=== PATIENT | female | born 1945 | race Two or more races ===

== ENCOUNTER 2020-08-25 23:35 | Inpatient (IN) | payer MEDICARE, MEDICAID ==
[~2020-08-25] VITALS: Ht 160 cm; Wt 74.8 kg
[2020-08-25] MEDS ORDERED: ONDANSETRON HCL 4MG/2ML INJ IV STA (23:47)
[2020-08-26] VITALS (11 sets, daily range): BP systolic 96–122; BP diastolic 44–53
[2020-08-26] MEDS ORDERED: SODIUM CHLORIDE 0.9% 1,000 ML IV ONE
[2020-08-26 00:32] LABS: HEMATOCRIT. 43.7 % (36.0-48.0); HEMOGLOBIN. 13.7 g/dL (12.0-16.0); MEAN CORPUSCULAR VOLUME 95.2 fL (81.0-99.0); MEAN PLATELET VOLUME 13.1 fl (7.4-10.4); PLATELET 200 x1000/uL (130-400); RED BLOOD CELL COUNT 4.59 mill/uL (4.2-5.4); RED CELL DISTRIBUTION WIDTH 14.9 % (11.6-14.6)
[2020-08-26 00:37] LABS: CHLORIDE 95 mEq/L (98-107)
[2020-08-26 00:41] LABS: BG BASE EXCESS -11.5 mmol/L (-2.0-2.0); BG CARBOXYHEMOGLOBIN 0.4 % (0.5-1.5); BG FRACTION INSPIRED OXYGEN 44; BG HCO3 ACT 13.8 mmol/L (22.0-26.0); BG METHEMOGLOBIN 0.2 % (0.0-1.5); BG OXYGEN SATURATION 79.9 % (92.0-98.5); BG OXYHEMOGLOBIN 79.4 % (94.0-97.0); BG PO2 49.7 mmHg (75.0-100.0); BG SAMPLE SITE LEFT RADIAL; BG TOTAL HEMOGLOBIN 13.9 g/dL (12.0-18.0); BG VENT MODE NASAL CANNULA
[2020-08-26 00:49] LABS: D-DIMER 4.91 mg/L FEU (<0.50); INR 1.1; PROTHROMBIN TIME 11.9 sec (9.6-11.0)
[2020-08-26] MEDS ORDERED: INSULIN REGULAR (HUMULIN R) 300UNITS/3ML VIAL SUBCUT SCH (01:15)
[2020-08-26] MEDS ORDERED: AZITHROMYCIN 500 MG in DEXT 5% WATER 250 ML IV ONE (01:30)
[2020-08-26] MEDS ORDERED: CEFTRIAXONE 1 G PREMIX 50 ML IV ONE (01:30)
[2020-08-26] MEDS ORDERED: VECURONIUM BROMIDE 10 MG/VIAL IV ONE (02:30)
[2020-08-26] MEDS ORDERED: ETOMIDATE 2MG/ML 10ML VIAL IV ONE (02:30)
[2020-08-26] MEDS ORDERED: PROPOFOL 10MG/ML 100ML 100 ML IV ONE (02:30)
[2020-08-26 03:12] LABS: PLATELET ESTIMATE NORMAL
[2020-08-26] MEDS ORDERED: DILTIAZEM HCL 125 MG in DEXTROSE 5% WATER 125 ML IV PRN (07:00)
[2020-08-26] MEDS ORDERED: PROPOFOL 10MG/ML 100ML 100 ML IV PRN (08:15)
[2020-08-26 08:52] LABS: BG CARBOXYHEMOGLOBIN 0.3 % (0.5-1.5); BG DEOXYHEMOGLOBIN 4.7 % (0.0-5.0); BG FRACTION INSPIRED OXYGEN 100; BG HCO3 ACT 19.5 mmol/L (22.0-26.0); BG METHEMOGLOBIN 0.1 % (0.0-1.5); BG OXYGEN SATURATION 95.3 % (92.0-98.5); BG OXYHEMOGLOBIN 94.9 % (94.0-97.0); BG PCO2 34.8 mmHg (35.0-45.0); BG PH 7.367 (7.350-7.450); BG PO2 80.5 mmHg (75.0-100.0); BG SAMPLE SITE LEFT BRACHIAL; BG TOTAL HEMOGLOBIN 12.6 g/dL (12.0-18.0); BG TOTAL RESPIRATORY RATE 27 b/min; BG VENT MODE VENT - AC
[2020-08-26] MEDS ORDERED: ENOXAPARIN 80MG/0.8ML SYR SUBCUT SCH (09:00)
[2020-08-26] MEDS ORDERED: PANTOPRAZOLE SODIUM 40 MG/VIAL IV SCH (09:00)
[2020-08-26] MEDS ORDERED: SODIUM CHLORIDE 0.9% 1,000 ML IV SCH (09:30)
[2020-08-26] MEDS: DEXAMETHASONE 10 MG/ML VIAL IV SCH (09:54)
[2020-08-26 10:38] LABS: CLARITY URINE CLOUDY (CLEAR); COLOR URINE YELLOW (YELLOW); KETONES URINE TRACE (NEGATIVE); LEUKOCYTE ESTERASE URINE 2+ (NEGATIVE); NITRITE URINE NEGATIVE (NEGATIVE); OCCULT BLOOD URINE 3+ (NEGATIVE); PH URINE 5.5 (4.5-8.0); PROTEIN URINE 1+ (NEGATIVE); SPECIFIC GRAVITY URINE 1.024 (1.005-1.030); UROBILINOGEN URINE 0.2 E.U./dL (0.2-1.0)
[2020-08-26 12:21] LABS: CHLORIDE 117 mEq/L (98-107)
[2020-08-26 12:56] LABS: HEMATOCRIT. 30.9 % (36.0-48.0); HEMOGLOBIN. 10.1 g/dL (12.0-16.0); MEAN CORPUSCULAR HEMOGLOBIN 30.6 pg (28.0-32.0); MEAN CORPUSCULAR VOLUME 93.5 fL (81.0-99.0); MEAN PLATELET VOLUME 12.5 fl (7.4-10.4); PLATELET 163 x1000/uL (130-400); RED CELL DISTRIBUTION WIDTH 14.2 % (11.6-14.6)
[2020-08-26] MEDS ORDERED: INSULIN LISPRO 100 UNITS/ML SUBCUT NR ×2 (13:00→22:00)
[2020-08-26 13:13] LABS: PLATELET ESTIMATE NORMAL
[2020-08-26] MEDS ORDERED: INSULIN GLARGINE UD 100 UNITS/ML SYR SUBCUT NR (13:30)
[2020-08-26] MEDS ORDERED: MIDAZOLAM 100MG/100ML PMX 100 ML IV PRN (15:45)
[2020-08-26] MEDS ORDERED: MIDAZOLAM HCL 100 MG in DEXT 5% WATER 100 ML IV PRN (16:00)
[2020-08-26] MEDS ORDERED: SODIUM BICARBONATE 8.4% 1 MEQ/ML 50ML SYR IV NR (17:00)
[2020-08-26] MEDS: PANTOPRAZOLE SODIUM 40 MG/VIAL IV SCH (17:37)
[2020-08-26] MEDS: SODIUM CHLORIDE 0.45% 1,000 ML IV SCH (17:37)
[2020-08-26] MEDS ORDERED: FENTANYL CITRATE/PF 2,500 MCG in SODIUM CHLORIDE 0.9% 200 ML IV PRN (18:00)
[2020-08-26] MEDS ORDERED: AZITHROMYCIN 500MG in DEXTROSE 5% WATER 250ML IV SCH (21:00)
[2020-08-26] MEDS ORDERED: CEFTRIAXONE 1 G PREMIX 50 ML IV SCH (21:00)
[2020-08-26] MEDS ORDERED: INSULIN GLARGINE UD 100 UNITS/ML SYR SUBCUT SCH ×2 (22:00)
[2020-08-26] MEDS: BLOOD SUGAR DIAGNOSTIC STRIP TEST SCH (22:38)
[2020-08-26] MEDS: INSULIN LISPRO 100 UNITS/ML SUBCUT SCH (22:48)
[2020-08-27] VITALS (72 sets, daily range): BP systolic 92–148; BP diastolic 40–78
[2020-08-27] MEDS: CEFTRIAXONE 1,000 MG in DEXTROSE 5% WATER 50 ML IV SCH (01:13)
[2020-08-27] MEDS: AZITHROMYCIN 500MG in DEXTROSE 5% WATER 250ML IV SCH (02:05)
[2020-08-27 05:39] LABS: HEMATOCRIT. 32.5 % (36.0-48.0); HEMOGLOBIN. 10.8 g/dL (12.0-16.0); MEAN CORPUSCULAR HEMOGLOBIN 30.3 pg (28.0-32.0); MEAN CORPUSCULAR VOLUME 91.6 fL (81.0-99.0); MEAN PLATELET VOLUME 12.3 fl (7.4-10.4); PLATELET 156 x1000/uL (130-400); RED BLOOD CELL COUNT 3.55 mill/uL (4.2-5.4); RED CELL DISTRIBUTION WIDTH 14.3 % (11.6-14.6)
[2020-08-27 05:42] LABS: CHLORIDE 113 mEq/L (98-107)
[2020-08-27] MEDS: BLOOD SUGAR DIAGNOSTIC STRIP TEST SCH ×4 (06:22→21:12)
[2020-08-27] MEDS: INSULIN LISPRO 100 UNITS/ML SUBCUT SCH ×4 (06:32→21:50)
[2020-08-27] MEDS: SODIUM CHLORIDE 0.45% 1,000 ML IV SCH ×2 (06:36→10:19)
[2020-08-27 06:37] LABS: HEPATITIS A AB IGM NEGATIVE (NEGATIVE)
[2020-08-27] MEDS: MIDAZOLAM 100MG/100ML PREMIX IV PRN ×2 (06:37→17:37)
[2020-08-27 06:40] LABS: HEPATITIS B SURFACE ANTIGEN NEGATIVE
[2020-08-27] MEDS ORDERED: PANTOPRAZOLE SODIUM 40 MG/VIAL IV SCH (09:00)
[2020-08-27] MEDS: DEXAMETHASONE 10 MG/ML VIAL IV SCH (09:05)
[2020-08-27] MEDS: PANTOPRAZOLE SODIUM 40 MG/VIAL IV SCH ×2 (09:05→16:49)
[2020-08-27] MEDS: INSULIN GLARGINE UD 100 UNITS/ML SYR SUBCUT SCH ×2 (09:07→22:38)
[2020-08-27 11:56] LABS: BG BASE EXCESS 2.8 mmol/L (-2.0-2.0); BG CARBOXYHEMOGLOBIN 0.3 % (0.5-1.5); BG DEOXYHEMOGLOBIN 1.8 % (0.0-5.0); BG FRACTION INSPIRED OXYGEN 100; BG HCO3 ACT 26.8 mmol/L (22.0-26.0); BG METHEMOGLOBIN 0.3 % (0.0-1.5); BG OXYGEN SATURATION 98.2 % (92.0-98.5); BG OXYHEMOGLOBIN 97.6 % (94.0-97.0); BG PCO2 39.1 mmHg (35.0-45.0); BG PH 7.454 (7.350-7.450); BG PO2 110.4 mmHg (75.0-100.0); BG SAMPLE SITE LEFT RADIAL; BG TOTAL HEMOGLOBIN 11.3 g/dL (12.0-18.0); BG TOTAL RESPIRATORY RATE 21 b/min; BG VENT MODE VENT - AC
[2020-08-27 14:56] LABS: PLATELET ESTIMATE NORMAL
[2020-08-28] VITALS (68 sets, daily range): BP systolic 101–168; BP diastolic 41–87
[2020-08-28] MEDS: CEFTRIAXONE 1,000 MG in DEXTROSE 5% WATER 50 ML IV SCH (00:20)
[2020-08-28] MEDS: AZITHROMYCIN 500MG in DEXTROSE 5% WATER 250ML IV SCH (01:07)
[2020-08-28 04:56] LABS: HEMATOCRIT. 33.9 % (36.0-48.0); MEAN CORPUSCULAR HEMOGLOBIN 30.1 pg (28.0-32.0); MEAN CORPUSCULAR VOLUME 92.5 fL (81.0-99.0); MEAN PLATELET VOLUME 11.7 fl (7.4-10.4); PLATELET 117 x1000/uL (130-400); RED BLOOD CELL COUNT 3.67 mill/uL (4.2-5.4); RED CELL DISTRIBUTION WIDTH 14.4 % (11.6-14.6)
[2020-08-28 05:02] LABS: CHLORIDE 115 mEq/L (98-107)
[2020-08-28] MEDS: BLOOD SUGAR DIAGNOSTIC STRIP TEST SCH ×4 (06:12→21:00)
[2020-08-28] MEDS: INSULIN LISPRO 100 UNITS/ML SUBCUT SCH ×4 (06:14→22:01)
[2020-08-28] MEDS: DEXAMETHASONE 10 MG/ML VIAL IV SCH (09:48)
[2020-08-28] MEDS: PANTOPRAZOLE SODIUM 40 MG/VIAL IV SCH ×2 (09:48→17:17)
[2020-08-28] MEDS: MIDAZOLAM 100MG/100ML PREMIX IV PRN (09:48)
[2020-08-28] MEDS: INSULIN GLARGINE UD 100 UNITS/ML SYR SUBCUT SCH ×2 (09:49→22:02)
[2020-08-28] MEDS: SODIUM CHLORIDE 0.45% 1,000 ML IV SCH (09:51)
[2020-08-28 10:02] LABS: BG BASE EXCESS 2.7 mmol/L (-2.0-2.0); BG CARBOXYHEMOGLOBIN 0.3 % (0.5-1.5); BG DEOXYHEMOGLOBIN 7.7 % (0.0-5.0); BG FRACTION INSPIRED OXYGEN 100; BG HCO3 ACT 25.4 mmol/L (22.0-26.0); BG OXYGEN SATURATION 92.3 % (92.0-98.5); BG PCO2 32.6 mmHg (35.0-45.0); BG PO2 59.5 mmHg (75.0-100.0); BG SAMPLE SITE RIGHT RADIAL; BG TOTAL HEMOGLOBIN 11.2 g/dL (12.0-18.0); BG VENT MODE VENT - PRVC
[2020-08-28 12:55] LABS: PLATELET ESTIMATE NORMAL
[2020-08-29] VITALS (89 sets, daily range): BP systolic 118–167; BP diastolic 42–123
[2020-08-29] MEDS: MIDAZOLAM 100MG/100ML PREMIX IV PRN ×2 (00:08→13:48)
[2020-08-29] MEDS: CEFTRIAXONE 1,000 MG in DEXTROSE 5% WATER 50 ML IV SCH (02:20)
[2020-08-29] MEDS: AZITHROMYCIN 500MG in DEXTROSE 5% WATER 250ML IV SCH (02:43)
[2020-08-29] MEDS: SODIUM CHLORIDE 0.45% 1,000 ML IV SCH ×2 (02:43→18:26)
[2020-08-29 05:43] LABS: HEMATOCRIT. 32.2 % (36.0-48.0); HEMOGLOBIN. 10.5 g/dL (12.0-16.0); MEAN CORPUSCULAR HEMOGLOBIN 30.5 pg (28.0-32.0); MEAN CORPUSCULAR VOLUME 93.5 fL (81.0-99.0); MEAN PLATELET VOLUME 11.3 fl (7.4-10.4); RED BLOOD CELL COUNT 3.45 mill/uL (4.2-5.4); RED CELL DISTRIBUTION WIDTH 14.6 % (11.6-14.6)
[2020-08-29 05:46] LABS: CHLORIDE 113 mEq/L (98-107)
[2020-08-29] MEDS: PANTOPRAZOLE SODIUM 40 MG/VIAL IV SCH ×2 (10:11→18:26)
[2020-08-29] MEDS: INSULIN GLARGINE UD 100 UNITS/ML SYR SUBCUT SCH ×2 (10:11→22:47)
[2020-08-29] MEDS: DEXAMETHASONE 10 MG/ML VIAL IV SCH (10:11)
[2020-08-29 10:29] LABS: BG BASE EXCESS 1.6 mmol/L (-2.0-2.0); BG CARBOXYHEMOGLOBIN 0.2 % (0.5-1.5); BG FRACTION INSPIRED OXYGEN 100; BG HCO3 ACT 25.4 mmol/L (22.0-26.0); BG METHEMOGLOBIN 0.3 % (0.0-1.5); BG OXYHEMOGLOBIN 97.5 % (94.0-97.0); BG PCO2 36.7 mmHg (35.0-45.0); BG PH 7.458 (7.350-7.450); BG PO2 124.4 mmHg (75.0-100.0); BG SAMPLE SITE RIGHT RADIAL; BG TOTAL HEMOGLOBIN 10.4 g/dL (12.0-18.0); BG TOTAL RESPIRATORY RATE 16 b/min; BG VENT MODE VENT- PRVC
[2020-08-29 10:35] LABS: PLATELET ESTIMATE NORMAL
[2020-08-29 10:36] LABS: PLATELET 97 x1000/uL (130-400)
[2020-08-29] MEDS: BLOOD SUGAR DIAGNOSTIC STRIP TEST SCH ×3 (11:30→21:49)
[2020-08-29] MEDS: INSULIN LISPRO 100 UNITS/ML SUBCUT SCH ×3 (12:00→22:47)
[2020-08-29] MEDS: METOCLOPRAMIDE HCL 10MG/2ML VIAL IV SCH ×3 (13:08→23:24)
[2020-08-29] MEDS ORDERED: IPRATROPIUM/ALBUTEROL 0.5-3(2.5)MG/3ML NEB HHN PRN (13:15)
[2020-08-29] MEDS: IPRATROPIUM/ALBUTEROL 0.5-3(2.5)MG/3ML NEB HHN SCH (21:32)
[2020-08-29] MEDS: MIDAZOLAM HCL 100 MG in DEXT 5% WATER 100 ML IV PRN (23:25)
[2020-08-30] VITALS (89 sets, daily range): BP systolic 81–158; BP diastolic 35–78
[2020-08-30] MEDS: CEFTRIAXONE 1,000 MG in DEXTROSE 5% WATER 50 ML IV SCH (00:03)
[2020-08-30] MEDS: SODIUM CHLORIDE 0.45% 1,000 ML IV SCH ×2 (01:03→10:07)
[2020-08-30] MEDS: AZITHROMYCIN 500MG in DEXTROSE 5% WATER 250ML IV SCH (01:04)
[2020-08-30] MEDS: FENTANYL CITRATE/PF 2,500 MCG in SODIUM CHLORIDE 0.9% 200 ML IV PRN (02:19)
[2020-08-30] MEDS: IPRATROPIUM/ALBUTEROL 0.5-3(2.5)MG/3ML NEB HHN SCH ×4 (02:50→22:40)
[2020-08-30 05:42] LABS: HEMATOCRIT. 33.6 % (36.0-48.0); HEMOGLOBIN. 10.9 g/dL (12.0-16.0); MEAN CORPUSCULAR HEMOGLOBIN 30.3 pg (28.0-32.0); MEAN CORPUSCULAR VOLUME 93.5 fL (81.0-99.0); MEAN PLATELET VOLUME 12.4 fl (7.4-10.4); PLATELET 88 x1000/uL (130-400); RED BLOOD CELL COUNT 3.59 mill/uL (4.2-5.4); RED CELL DISTRIBUTION WIDTH 14.6 % (11.6-14.6)
[2020-08-30 06:02] LABS: CHLORIDE 109 mEq/L (98-107)
[2020-08-30] MEDS: BLOOD SUGAR DIAGNOSTIC STRIP TEST SCH ×4 (06:02→21:02)
[2020-08-30] MEDS: INSULIN LISPRO 100 UNITS/ML SUBCUT SCH ×4 (06:30→21:36)
[2020-08-30] MEDS: MIDAZOLAM HCL 100 MG in DEXT 5% WATER 100 ML IV PRN (06:35)
[2020-08-30 08:54] LABS: BG BASE EXCESS 5.6 mmol/L (-2.0-2.0); BG CARBOXYHEMOGLOBIN 0.1 % (0.5-1.5); BG DEOXYHEMOGLOBIN 4.1 % (0.0-5.0); BG HCO3 ACT 30.5 mmol/L (22.0-26.0); BG METHEMOGLOBIN 0.1 % (0.0-1.5); BG OXYGEN SATURATION 95.9 % (92.0-98.5); BG OXYHEMOGLOBIN 95.7 % (94.0-97.0); BG PCO2 45.7 mmHg (35.0-45.0); BG PH 7.442 (7.350-7.450); BG PO2 80.7 mmHg (75.0-100.0); BG SAMPLE SITE RIGHT RADIAL; BG TOTAL HEMOGLOBIN 11.3 g/dL (12.0-18.0); BG VENT MODE VENT- PRVC
[2020-08-30] MEDS: PANTOPRAZOLE SODIUM 40 MG/VIAL IV SCH ×2 (09:29→17:34)
[2020-08-30] MEDS: DEXAMETHASONE 10 MG/ML VIAL IV SCH (09:30)
[2020-08-30] MEDS: INSULIN GLARGINE UD 100 UNITS/ML SYR SUBCUT SCH ×2 (09:31→21:37)
[2020-08-30] MEDS: METOCLOPRAMIDE HCL 10MG/2ML VIAL IV SCH ×2 (12:13→17:34)
[2020-08-30] MEDS: MIDAZOLAM 100MG/100ML PREMIX IV PRN ×2 (13:54→20:36)
[2020-08-30 13:56] LABS: PLATELET ESTIMATE DECREASED
[2020-08-30] MEDS: NOREPINEPHRINE 32 MG in DEXT 5% WATER 218 ML IV PRN (21:02)
[2020-08-31] VITALS (91 sets, daily range): BP systolic 87–190; BP diastolic 40–86
[2020-08-31] MEDS: METOCLOPRAMIDE HCL 10MG/2ML VIAL IV SCH ×4 (00:03→17:02)
[2020-08-31] MEDS: SODIUM CHLORIDE 0.45% 1,000 ML IV SCH ×2 (00:59→15:21)
[2020-08-31] MEDS: FENTANYL CITRATE/PF 2,500 MCG in SODIUM CHLORIDE 0.9% 200 ML IV PRN ×3 (03:08→20:48)
[2020-08-31] MEDS: MIDAZOLAM 100MG/100ML PREMIX IV PRN ×3 (03:36→19:18)
[2020-08-31] MEDS: BLOOD SUGAR DIAGNOSTIC STRIP TEST SCH ×4 (05:39→20:33)
[2020-08-31 05:45] LABS: CHLORIDE 104 mEq/L (98-107)
[2020-08-31] MEDS: INSULIN LISPRO 100 UNITS/ML SUBCUT SCH ×4 (06:01→21:09)
[2020-08-31 08:48] LABS: HEMOGLOBIN. 11.3 g/dL (12.0-16.0); MEAN CORPUSCULAR HEMOGLOBIN 30.1 pg (28.0-32.0); MEAN CORPUSCULAR VOLUME 95.7 fL (81.0-99.0); MEAN PLATELET VOLUME 11.6 fl (7.4-10.4); RED BLOOD CELL COUNT 3.76 mill/uL (4.2-5.4)
[2020-08-31 08:58] LABS: PLATELET 106 x1000/uL (130-400)
[2020-08-31] MEDS: IPRATROPIUM/ALBUTEROL 0.5-3(2.5)MG/3ML NEB HHN SCH ×3 (09:26→20:16)
[2020-08-31] MEDS: DEXAMETHASONE 10 MG/ML VIAL IV SCH (09:53)
[2020-08-31] MEDS: PANTOPRAZOLE SODIUM 40 MG/VIAL IV SCH ×2 (09:54→17:01)
[2020-08-31] MEDS: INSULIN GLARGINE UD 100 UNITS/ML SYR SUBCUT SCH ×2 (10:18→21:09)
[2020-08-31 11:24] LABS: BG BASE EXCESS -1.7 mmol/L (-2.0-2.0); BG CARBOXYHEMOGLOBIN 0.1 % (0.5-1.5); BG DEOXYHEMOGLOBIN 11.1 % (0.0-5.0); BG FRACTION INSPIRED OXYGEN 100; BG HCO3 ACT 27.7 mmol/L (22.0-26.0); BG METHEMOGLOBIN 0.3 % (0.0-1.5); BG OXYGEN SATURATION 88.9 % (92.0-98.5); BG OXYHEMOGLOBIN 88.5 % (94.0-97.0); BG PCO2 72.1 mmHg (35.0-45.0); BG PH 7.203 (7.350-7.450); BG PO2 62.8 mmHg (75.0-100.0); BG SAMPLE SITE RIGHT BRACHIAL; BG TOTAL HEMOGLOBIN 12.5 g/dL (12.0-18.0); BG VENT MODE VENT- PRVC
[2020-08-31 14:56] LABS: PLATELET ESTIMATE DECREASED
[2020-08-31] MEDS: CEFEPIME 1,000 MG in DEXTROSE 5% WATER 50 ML IV SCH (17:01)
[2020-09-01] VITALS (83 sets, daily range): BP systolic 84–159; BP diastolic 37–75
[2020-09-01] MEDS: METOCLOPRAMIDE HCL 10MG/2ML VIAL IV SCH ×4 (00:05→17:50)
[2020-09-01] MEDS: IPRATROPIUM/ALBUTEROL 0.5-3(2.5)MG/3ML NEB HHN SCH ×4 (00:38→20:48)
[2020-09-01] MEDS: MIDAZOLAM 100MG/100ML PREMIX IV PRN (03:53)
[2020-09-01] MEDS: SODIUM CHLORIDE 0.45% 1,000 ML IV SCH ×2 (05:24→22:05)
[2020-09-01 05:42] LABS: HEMATOCRIT. 31.4 % (36.0-48.0); HEMOGLOBIN. 10.2 g/dL (12.0-16.0); MEAN CORPUSCULAR HEMOGLOBIN 30.5 pg (28.0-32.0); MEAN PLATELET VOLUME 12.5 fl (7.4-10.4); PLATELET 79 x1000/uL (130-400); RED BLOOD CELL COUNT 3.34 mill/uL (4.2-5.4); RED CELL DISTRIBUTION WIDTH 14.7 % (11.6-14.6)
[2020-09-01 05:53] LABS: CHLORIDE 108 mEq/L (98-107)
[2020-09-01] MEDS: CEFEPIME 1,000 MG in DEXTROSE 5% WATER 50 ML IV SCH ×2 (05:55→17:50)
[2020-09-01] MEDS: BLOOD SUGAR DIAGNOSTIC STRIP TEST SCH ×4 (05:57→21:00)
[2020-09-01] MEDS: INSULIN LISPRO 100 UNITS/ML SUBCUT SCH ×4 (06:01→22:59)
[2020-09-01] MEDS: MIDAZOLAM 100MG/100ML PMX 100 ML IV PRN (06:39)
[2020-09-01 08:18] LABS: BG CARBOXYHEMOGLOBIN 0.3 % (0.5-1.5); BG DEOXYHEMOGLOBIN 1.5 % (0.0-5.0); BG HCO3 ACT 26.9 mmol/L (22.0-26.0); BG METHEMOGLOBIN 0.2 % (0.0-1.5); BG OXYGEN SATURATION 98.5 % (92.0-98.5); BG PH 7.357 (7.350-7.450); BG PO2 134.9 mmHg (75.0-100.0); BG SAMPLE SITE RIGHT RADIAL; BG VENT MODE VENT- PRVC
[2020-09-01] MEDS: PANTOPRAZOLE SODIUM 40 MG/VIAL IV SCH ×2 (08:42→17:51)
[2020-09-01] MEDS: DEXAMETHASONE 10 MG/ML VIAL IV SCH (08:42)
[2020-09-01] MEDS ORDERED: BISACODYL 10MG SUPP PR NR (09:44)
[2020-09-01] MEDS: DOCUSATE SODIUM SUGAR FREE 100MG/10ML UDC NG SCH (10:47)
[2020-09-01] MEDS ORDERED: METOCLOPRAMIDE HCL 10MG/2ML VIAL IV SCH (12:00)
[2020-09-01 13:22] LABS: PLATELET ESTIMATE DECREASED
[2020-09-01] MEDS ORDERED: SODIUM POLYSTYRENE SULFONATE 15 G/60 ML BOT PO NR (16:00)
[2020-09-01] MEDS: INSULIN GLARGINE UD 100 UNITS/ML SYR SUBCUT SCH (23:00)
[2020-09-01] MEDS: FENTANYL CITRATE/PF 2,500 MCG in SODIUM CHLORIDE 0.9% 200 ML IV PRN (23:11)
[2020-09-02] VITALS (68 sets, daily range): BP systolic 76–193; BP diastolic 38–96
[2020-09-02] MEDS: METOCLOPRAMIDE HCL 10MG/2ML VIAL IV SCH ×4 (00:25→18:41)
[2020-09-02] MEDS: PROPOFOL 10MG/ML 100ML 100 ML IV PRN ×3 (01:00→13:48)
[2020-09-02] MEDS: MIDAZOLAM 100MG/100ML PMX 100 ML IV PRN ×2 (03:44→14:32)
[2020-09-02] MEDS: INSULIN LISPRO 100 UNITS/ML SUBCUT SCH ×5 (06:46→21:00)
[2020-09-02] MEDS: BLOOD SUGAR DIAGNOSTIC STRIP TEST SCH ×5 (06:46→21:26)
[2020-09-02] MEDS: CEFEPIME 1,000 MG in DEXTROSE 5% WATER 50 ML IV SCH ×2 (06:48→18:42)
[2020-09-02] MEDS: IPRATROPIUM/ALBUTEROL 0.5-3(2.5)MG/3ML NEB HHN SCH ×3 (08:25→22:10)
[2020-09-02 09:56] LABS: BG BASE EXCESS -0.5 mmol/L (-2.0-2.0); BG CARBOXYHEMOGLOBIN 0.8 % (0.5-1.5); BG DEOXYHEMOGLOBIN 1.3 % (0.0-5.0); BG FRACTION INSPIRED OXYGEN 100; BG HCO3 ACT 26.1 mmol/L (22.0-26.0); BG METHEMOGLOBIN 0.2 % (0.0-1.5); BG OXYGEN SATURATION 98.7 % (92.0-98.5); BG OXYHEMOGLOBIN 97.7 % (94.0-97.0); BG PCO2 52.6 mmHg (35.0-45.0); BG PH 7.314 (7.350-7.450); BG PO2 136.6 mmHg (75.0-100.0); BG SAMPLE SITE LEFT RADIAL; BG TOTAL HEMOGLOBIN 10.2 g/dL (12.0-18.0); BG TOTAL RESPIRATORY RATE 20 b/min; BG VENT MODE VENT - AC
[2020-09-02] MEDS: PANTOPRAZOLE SODIUM 40 MG/VIAL IV SCH ×2 (10:14→18:41)
[2020-09-02] MEDS: DEXAMETHASONE 10 MG/ML VIAL IV SCH (10:14)
[2020-09-02] MEDS: SODIUM CHLORIDE 0.45% 1,000 ML IV SCH ×2 (10:15→10:45)
[2020-09-02] MEDS: INSULIN GLARGINE UD 100 UNITS/ML SYR SUBCUT SCH ×2 (10:16→21:27)
[2020-09-02] MEDS: DOCUSATE SODIUM SUGAR FREE 100MG/10ML UDC NG SCH (10:24)
[2020-09-02] MEDS ORDERED: LACTULOSE 20G/30ML UDC PO PRN (10:30)
[2020-09-02] MEDS: FENTANYL CITRATE/PF 2,500 MCG in SODIUM CHLORIDE 0.9% 200 ML IV PRN ×2 (10:44→14:33)
[2020-09-02] MEDS: DEXTROSE 50% WATER 50ML SYRINGE IV PRN (13:43)
[2020-09-02 13:48] LABS: HEMATOCRIT 31.4 % (36.0-48.0); MEAN CORPUSCULAR HEMOGLOBIN 30.2 pg (28.0-32.0); MEAN CORPUSCULAR VOLUME 94.5 fL (81.0-99.0); PLATELET 67 x1000/uL (130-400); RED BLOOD CELL COUNT 3.32 mill/uL (4.2-5.4); RED CELL DISTRIBUTION WIDTH 15.1 % (11.6-14.6)
[2020-09-02 13:56] LABS: CHLORIDE 111 mEq/L (98-107)
[2020-09-02] MEDS: DEXT 5%/0.45% NACL 1000ML 1,000 ML IV SCH (15:52)
[2020-09-02] MEDS ORDERED: PROPOFOL 10MG/ML 100ML 100 ML IV PRN (19:00)
[2020-09-03] VITALS (51 sets, daily range): BP systolic 78–155; BP diastolic 38–62
[2020-09-03] MEDS: METOCLOPRAMIDE HCL 10MG/2ML VIAL IV SCH ×4 (00:20→17:40)
[2020-09-03] MEDS: IPRATROPIUM/ALBUTEROL 0.5-3(2.5)MG/3ML NEB HHN SCH ×4 (03:59→21:16)
[2020-09-03] MEDS: DEXT 5%/0.45% NACL 1000ML 1,000 ML IV SCH (05:12)
[2020-09-03] MEDS: CEFEPIME 1,000 MG in DEXTROSE 5% WATER 50 ML IV SCH ×2 (05:20→17:39)
[2020-09-03 06:09] LABS: CHLORIDE 111 mEq/L (98-107)
[2020-09-03 06:15] LABS: HEMATOCRIT. 27.1 % (36.0-48.0); HEMOGLOBIN. 8.8 g/dL (12.0-16.0); MEAN CORPUSCULAR HEMOGLOBIN 30.4 pg (28.0-32.0); MEAN CORPUSCULAR VOLUME 93.6 fL (81.0-99.0); PLATELET 51 x1000/uL (130-400); RED BLOOD CELL COUNT 2.89 mill/uL (4.2-5.4); RED CELL DISTRIBUTION WIDTH 14.8 % (11.6-14.6)
[2020-09-03] MEDS: BLOOD SUGAR DIAGNOSTIC STRIP TEST SCH ×4 (07:50→21:13)
[2020-09-03] MEDS: DOCUSATE SODIUM SUGAR FREE 100MG/10ML UDC NG SCH (08:10)
[2020-09-03] MEDS: PANTOPRAZOLE SODIUM 40 MG/VIAL IV SCH ×2 (08:16→17:42)
[2020-09-03] MEDS: DEXAMETHASONE 10 MG/ML VIAL IV SCH (08:16)
[2020-09-03] MEDS: INSULIN LISPRO 100 UNITS/ML SUBCUT SCH ×4 (08:20→21:00)
[2020-09-03] MEDS: INSULIN GLARGINE UD 100 UNITS/ML SYR SUBCUT SCH (10:00)
[2020-09-03 10:27] LABS: BG BASE EXCESS 0.1 mmol/L (-2.0-2.0); BG CARBOXYHEMOGLOBIN 0.4 % (0.5-1.5); BG DEOXYHEMOGLOBIN 28.8 % (0.0-5.0); BG HCO3 ACT 27.1 mmol/L (22.0-26.0); BG METHEMOGLOBIN 0.3 % (0.0-1.5); BG OXYHEMOGLOBIN 70.5 % (94.0-97.0); BG PCO2 55.6 mmHg (35.0-45.0); BG PH 7.305 (7.350-7.450); BG PO2 39.3 mmHg (75.0-100.0); BG SAMPLE SITE RIGHT RADIAL; BG TOTAL HEMOGLOBIN 10.2 g/dL (12.0-18.0); BG VENT MODE VENT- PRVC
[2020-09-03] MEDS: LACTULOSE 20G/30ML UDC PO SCH ×2 (12:25→21:22)
[2020-09-03 14:06] LABS: PLATELET ESTIMATE DECREASED
[2020-09-03 14:58] LABS: BG BASE EXCESS -0.7 mmol/L (-2.0-2.0); BG CARBOXYHEMOGLOBIN 0.6 % (0.5-1.5); BG DEOXYHEMOGLOBIN 32.8 % (0.0-5.0); BG FRACTION INSPIRED OXYGEN 100; BG HCO3 ACT 26.9 mmol/L (22.0-26.0); BG METHEMOGLOBIN 0.2 % (0.0-1.5); BG OXYGEN SATURATION 66.9 % (92.0-98.5); BG OXYHEMOGLOBIN 66.4 % (94.0-97.0); BG PCO2 59.6 mmHg (35.0-45.0); BG PH 7.272 (7.350-7.450); BG PO2 38.4 mmHg (75.0-100.0); BG SAMPLE SITE RIGHT RADIAL; BG TOTAL HEMOGLOBIN 10.2 g/dL (12.0-18.0); BG TOTAL RESPIRATORY RATE 25 b/min; BG VENT MODE VENT - AC
[2020-09-03] MEDS: NOREPINEPHRINE 32 MG in DEXT 5% WATER 218 ML IV PRN (21:47)
[2020-09-04] VITALS (87 sets, daily range): BP systolic 79–158; BP diastolic 21–80
[2020-09-04] MEDS: METOCLOPRAMIDE HCL 10MG/2ML VIAL IV SCH ×4 (00:16→18:34)
[2020-09-04] MEDS: IPRATROPIUM/ALBUTEROL 0.5-3(2.5)MG/3ML NEB HHN SCH ×3 (02:48→20:36)
[2020-09-04] MEDS: FENTANYL CITRATE/PF 2,500 MCG in SODIUM CHLORIDE 0.9% 200 ML IV PRN (04:13)
[2020-09-04 06:23] LABS: HEMATOCRIT. 28.7 % (36.0-48.0); HEMOGLOBIN. 9.1 g/dL (12.0-16.0); MEAN CORPUSCULAR HEMOGLOBIN 30.3 pg (28.0-32.0); MEAN CORPUSCULAR VOLUME 95.2 fL (81.0-99.0); RED BLOOD CELL COUNT 3.02 mill/uL (4.2-5.4); RED CELL DISTRIBUTION WIDTH 15.3 % (11.6-14.6)
[2020-09-04] MEDS: CEFEPIME 1,000 MG in DEXTROSE 5% WATER 50 ML IV SCH ×2 (06:31→18:34)
[2020-09-04] MEDS: INSULIN LISPRO 100 UNITS/ML SUBCUT SCH ×4 (09:28→21:00)
[2020-09-04] MEDS: BLOOD SUGAR DIAGNOSTIC STRIP TEST SCH ×4 (09:28→21:13)
[2020-09-04] MEDS: DOCUSATE SODIUM SUGAR FREE 100MG/10ML UDC NG SCH (09:38)
[2020-09-04] MEDS: LACTULOSE 20G/30ML UDC PO SCH ×2 (09:38→16:15)
[2020-09-04] MEDS: DEXAMETHASONE 10 MG/ML VIAL IV SCH (09:38)
[2020-09-04] MEDS: PANTOPRAZOLE SODIUM 40 MG/VIAL IV SCH ×2 (09:38→16:14)
[2020-09-04 10:01] LABS: BG BASE EXCESS -2.8 mmol/L (-2.0-2.0); BG CARBOXYHEMOGLOBIN 1.4 % (0.5-1.5); BG DEOXYHEMOGLOBIN 28.6 % (0.0-5.0); BG FRACTION INSPIRED OXYGEN 100; BG HCO3 ACT 24.4 mmol/L (22.0-26.0); BG METHEMOGLOBIN 0.1 % (0.0-1.5); BG OXYHEMOGLOBIN 69.9 % (94.0-97.0); BG PCO2 54.2 mmHg (35.0-45.0); BG PH 7.272 (7.350-7.450); BG PO2 39.9 mmHg (75.0-100.0); BG SAMPLE SITE LEFT RADIAL; BG TOTAL HEMOGLOBIN 10.4 g/dL (12.0-18.0); BG TOTAL RESPIRATORY RATE 24 b/min; BG VENT MODE VENT - AC
[2020-09-04 11:07] LABS: PLATELET ESTIMATE DECREASED
[2020-09-04 11:08] LABS: MEAN PLATELET VOLUME 12.8 fl (7.4-10.4); PLATELET 78 x1000/uL (130-400)
[2020-09-04] MEDS ORDERED: SODIUM POLYSTYRENE SULFONATE 15 G/60 ML BOT PO NR (13:00)
[2020-09-05] VITALS (81 sets, daily range): BP systolic 94–162; BP diastolic 49–95
[2020-09-05] MEDS ORDERED: VANCOMYCIN 1250MG in DEXTROSE 5% WATER 250ML IV NR (01:00)
[2020-09-05] MEDS: IPRATROPIUM/ALBUTEROL 0.5-3(2.5)MG/3ML NEB HHN SCH ×4 (01:05→20:34)
[2020-09-05] MEDS: FENTANYL CITRATE/PF 2,500 MCG in SODIUM CHLORIDE 0.9% 200 ML IV PRN ×3 (01:12→23:08)
[2020-09-05] MEDS: DEXTROSE 50% WATER 50ML SYRINGE IV PRN ×2 (01:14→12:22)
[2020-09-05] MEDS: METOCLOPRAMIDE HCL 10MG/2ML VIAL IV SCH ×5 (01:14→23:48)
[2020-09-05] MEDS: CEFEPIME 1,000 MG in DEXTROSE 5% WATER 50 ML IV SCH (05:29)
[2020-09-05 07:17] LABS: HEMATOCRIT. 28.3 % (36.0-48.0); MEAN CORPUSCULAR HEMOGLOBIN 30.6 pg (28.0-32.0); MEAN CORPUSCULAR VOLUME 96.2 fL (81.0-99.0); MEAN PLATELET VOLUME 11.8 fl (7.4-10.4); PLATELET 67 x1000/uL (130-400); RED BLOOD CELL COUNT 2.94 mill/uL (4.2-5.4); RED CELL DISTRIBUTION WIDTH 15.6 % (11.6-14.6)
[2020-09-05] MEDS: BLOOD SUGAR DIAGNOSTIC STRIP TEST SCH ×4 (07:50→21:00)
[2020-09-05 08:14] LABS: BG BASE EXCESS -2.4 mmol/L (-2.0-2.0); BG CARBOXYHEMOGLOBIN 0.2 % (0.5-1.5); BG FRACTION INSPIRED OXYGEN 100; BG HCO3 ACT 25.4 mmol/L (22.0-26.0); BG METHEMOGLOBIN 0.1 % (0.0-1.5); BG OXYHEMOGLOBIN 92.7 % (94.0-97.0); BG PCO2 59.8 mmHg (35.0-45.0); BG PH 7.246 (7.350-7.450); BG PO2 71.6 mmHg (75.0-100.0); BG SAMPLE SITE RIGHT RADIAL; BG TOTAL HEMOGLOBIN 9.9 g/dL (12.0-18.0); BG VENT MODE VENT - AC/PRVC
[2020-09-05] MEDS: INSULIN LISPRO 100 UNITS/ML SUBCUT SCH ×4 (08:20→22:01)
[2020-09-05] MEDS: DOCUSATE SODIUM SUGAR FREE 100MG/10ML UDC NG SCH (09:00)
[2020-09-05] MEDS: DEXAMETHASONE 10 MG/ML VIAL IV SCH (09:00)
[2020-09-05] MEDS: LACTULOSE 20G/30ML UDC PO SCH ×2 (09:00→16:42)
[2020-09-05] MEDS: PANTOPRAZOLE SODIUM 40 MG/VIAL IV SCH ×2 (09:00→16:42)
[2020-09-05 10:36] LABS: PLATELET ESTIMATE MARKEDLY DECREASED
[2020-09-05] MEDS ORDERED: VANCOMYCIN 1 G PREMIX 200 ML IV SCH ×2 (16:00→18:00)
[2020-09-05] MEDS: DEXT 5%/0.45% NACL 1000ML 1,000 ML IV SCH (17:35)
[2020-09-05] MEDS ORDERED: IVERMECTIN 3 MG TABLET PO NR (22:30)
[2020-09-06] VITALS (55 sets, daily range): BP systolic 100–145; BP diastolic 50–71
[2020-09-06] MEDS: IPRATROPIUM/ALBUTEROL 0.5-3(2.5)MG/3ML NEB HHN SCH ×4 (02:32→21:28)
[2020-09-06] MEDS: INSULIN LISPRO 100 UNITS/ML SUBCUT SCH ×4 (06:20→21:23)
[2020-09-06] MEDS: METOCLOPRAMIDE HCL 10MG/2ML VIAL IV SCH ×4 (06:20→23:26)
[2020-09-06] MEDS: BLOOD SUGAR DIAGNOSTIC STRIP TEST SCH ×4 (06:20→21:20)
[2020-09-06] MEDS: DEXTROSE 50% WATER 50ML SYRINGE IV PRN (06:21)
[2020-09-06] MEDS: LACTULOSE 20G/30ML UDC PO SCH ×2 (09:17→16:32)
[2020-09-06] MEDS: DOCUSATE SODIUM SUGAR FREE 100MG/10ML UDC NG SCH (09:17)
[2020-09-06] MEDS: DEXAMETHASONE 10 MG/ML VIAL IV SCH (09:17)
[2020-09-06] MEDS: PANTOPRAZOLE SODIUM 40 MG/VIAL IV SCH ×2 (09:17→16:32)
[2020-09-06] MEDS: FENTANYL CITRATE/PF 2,500 MCG in SODIUM CHLORIDE 0.9% 200 ML IV PRN ×2 (09:20→18:42)
[2020-09-06] MEDS: DEXT 5%/0.45% NACL 1000ML 1,000 ML IV SCH (12:01)
[2020-09-06 13:33] LABS: BG BASE EXCESS -4.9 mmol/L (-2.0-2.0); BG CARBOXYHEMOGLOBIN 0.3 % (0.5-1.5); BG DEOXYHEMOGLOBIN 22.1 % (0.0-5.0); BG FRACTION INSPIRED OXYGEN 100; BG HCO3 ACT 22.6 mmol/L (22.0-26.0); BG METHEMOGLOBIN 0.5 % (0.0-1.5); BG OXYGEN SATURATION 77.7 % (92.0-98.5); BG OXYHEMOGLOBIN 77.1 % (94.0-97.0); BG PCO2 54.6 mmHg (35.0-45.0); BG PH 7.235 (7.350-7.450); BG PO2 45.6 mmHg (75.0-100.0); BG SAMPLE SITE RIGHT RADIAL; BG TOTAL HEMOGLOBIN 9.1 g/dL (12.0-18.0); BG VENT MODE VENT - AC/PRVC
[2020-09-06 20:18] LABS: HEMATOCRIT. 25.5 % (36.0-48.0); MEAN CORPUSCULAR HEMOGLOBIN 30.3 pg (28.0-32.0); MEAN CORPUSCULAR VOLUME 96.4 fL (81.0-99.0); MEAN PLATELET VOLUME 11.2 fl (7.4-10.4); RED BLOOD CELL COUNT 2.65 mill/uL (4.2-5.4); RED CELL DISTRIBUTION WIDTH 15.7 % (11.6-14.6)
[2020-09-06 20:23] LABS: PLATELET 49 x1000/uL (130-400)
[2020-09-06 20:57] LABS: PLATELET ESTIMATE MARKEDLY DECREASED
[2020-09-07] VITALS (100 sets, daily range): BP systolic 79–173; BP diastolic 43–87
[2020-09-07] MEDS: IPRATROPIUM/ALBUTEROL 0.5-3(2.5)MG/3ML NEB HHN SCH ×4 (00:42→20:32)
[2020-09-07] MEDS ORDERED: FLUCONAZOLE 200 MG/100ML BAG 100 ML IV SCH (04:00)
[2020-09-07] MEDS: FENTANYL CITRATE/PF 2,500 MCG in SODIUM CHLORIDE 0.9% 200 ML IV PRN ×3 (04:55→20:33)
[2020-09-07] MEDS: METOCLOPRAMIDE HCL 10MG/2ML VIAL IV SCH ×3 (06:00→17:26)
[2020-09-07 06:19] LABS: HEMATOCRIT. 24.3 % (36.0-48.0); HEMOGLOBIN. 7.7 g/dL (12.0-16.0); MEAN CORPUSCULAR HEMOGLOBIN 30.4 pg (28.0-32.0); MEAN CORPUSCULAR VOLUME 95.4 fL (81.0-99.0); MEAN PLATELET VOLUME 12.4 fl (7.4-10.4); PLATELET 68 x1000/uL (130-400); RED BLOOD CELL COUNT 2.55 mill/uL (4.2-5.4); RED CELL DISTRIBUTION WIDTH 15.8 % (11.6-14.6)
[2020-09-07] MEDS: BLOOD SUGAR DIAGNOSTIC STRIP TEST SCH ×4 (07:50→21:23)
[2020-09-07] MEDS ORDERED: AMIODARONE HCL 150 MG in DEXT 5% WATER 100 ML IV SCH (08:00)
[2020-09-07 09:39] LABS: BG BASE EXCESS -8.7 mmol/L (-2.0-2.0); BG CARBOXYHEMOGLOBIN 1.3 % (0.5-1.5); BG DEOXYHEMOGLOBIN 20.9 % (0.0-5.0); BG FRACTION INSPIRED OXYGEN 100; BG HCO3 ACT 18.5 mmol/L (22.0-26.0); BG METHEMOGLOBIN 0.1 % (0.0-1.5); BG OXYGEN SATURATION 78.8 % (92.0-98.5); BG OXYHEMOGLOBIN 77.7 % (94.0-97.0); BG PCO2 46.2 mmHg (35.0-45.0); BG PO2 45.7 mmHg (75.0-100.0); BG SAMPLE SITE RIGHT RADIAL; BG TOTAL HEMOGLOBIN 8.7 g/dL (12.0-18.0); BG VENT MODE VENT - AC/PRVC
[2020-09-07] MEDS: DEXAMETHASONE 10 MG/ML VIAL IV SCH (09:48)
[2020-09-07] MEDS: PANTOPRAZOLE SODIUM 40 MG/VIAL IV SCH ×2 (09:48→17:26)
[2020-09-07] MEDS: LACTULOSE 20G/30ML UDC PO SCH ×2 (09:48→17:26)
[2020-09-07] MEDS: DOCUSATE SODIUM SUGAR FREE 100MG/10ML UDC NG SCH (09:48)
[2020-09-07] MEDS: INSULIN LISPRO 100 UNITS/ML SUBCUT SCH ×4 (09:50→21:29)
[2020-09-07] MEDS: DEXT 5%/0.45% NACL 1000ML 1,000 ML IV SCH (09:51)
[2020-09-07 10:29] LABS: PLATELET ESTIMATE DECREASED
[2020-09-07] MEDS ORDERED: VANCOMYCIN 1 G PREMIX 200 ML IV SCH (11:00)
[2020-09-07] MEDS ORDERED: MIDAZOLAM 100MG/100ML PMX 100 ML IV PRN (13:15)
[2020-09-07] MEDS: VASOPRESSIN 20 UNIT in SODIUM CHLORIDE 0.9% 99 ML IV PRN (19:03)
[2020-09-07] MEDS ORDERED: PHENYLEPHRINE 100 MG in DEXT 5% WATER 240 ML IV PRN (19:30)
[2020-09-07] MEDS ORDERED: PHENYLEPHRINE 50 MG in DEXT 5% WATER 245 ML IV PRN (20:45)
[2020-09-07] MEDS ORDERED: IVERMECTIN 3 MG TABLET PO NR (21:30)
[2020-09-08] VITALS (42 sets, daily range): BP systolic 79–119; BP diastolic 45–77
[2020-09-08] MEDS ORDERED: CEFEPIME 1,000 MG in DEXTROSE 5% WATER 50 ML IV SCH (00:15)
[2020-09-08] MEDS: METOCLOPRAMIDE HCL 10MG/2ML VIAL IV SCH ×2 (00:42→05:31)
[2020-09-08] MEDS ORDERED: MEROPENEM 500 MG in SODIUM CHLORIDE 0.9% 50 ML IV SCH (01:00)
[2020-09-08] MEDS: VASOPRESSIN 20 UNIT in SODIUM CHLORIDE 0.9% 99 ML IV PRN (01:30)
[2020-09-08] MEDS: IPRATROPIUM/ALBUTEROL 0.5-3(2.5)MG/3ML NEB HHN SCH ×2 (02:21→08:46)
[2020-09-08 06:03] LABS: HEMOGLOBIN. 7.7 g/dL (12.0-16.0); MEAN CORPUSCULAR HEMOGLOBIN 30.8 pg (28.0-32.0); MEAN CORPUSCULAR VOLUME 95.3 fL (81.0-99.0); RED BLOOD CELL COUNT 2.51 mill/uL (4.2-5.4); RED CELL DISTRIBUTION WIDTH 15.9 % (11.6-14.6)
[2020-09-08] MEDS: FENTANYL CITRATE/PF 2,500 MCG in SODIUM CHLORIDE 0.9% 200 ML IV PRN (06:32)
[2020-09-08] MEDS: DEXT 5%/0.45% NACL 1000ML 1,000 ML IV SCH (06:47)
[2020-09-08] MEDS: BLOOD SUGAR DIAGNOSTIC STRIP TEST SCH (07:50)
[2020-09-08] MEDS ORDERED: MORPHINE SULFATE 2 MG/ML CPJ (NOT FOR IM USE) IV PRN (09:15)
[2020-09-08] MEDS ORDERED: LORAZEPAM 2MG/ML CPJ IV PRN (09:15)
[2020-09-08 13:18] LABS: NUCLEATED RED BLOOD CELLS 2 /100 WBC; PLATELET ESTIMATE DECREASED
[2020-09-08 13:19] LABS: PLATELET 57 x1000/uL (130-400)
== END 2020-09-08 11:01 | disposition expired | DRG 720 ==
LOC: EDSEX 23:35 → ER 23:35 → MICUSO 08-26 04:11 → ENRESERV 08-26 19:38 → CVICU 09-02 11:30
PROVIDERS: ADMIT Internal Medicine; ATTEND Internal Medicine
PROC: 0BH17EZ Insertion of Endotracheal Airway into Trachea, Via Natural or Artificial Opening (ICD-10-PCS; principal; 2020-08-26)
PROC: 5A1955Z Respiratory Ventilation, Greater than 96 Consecutive Hours (ICD-10-PCS; 2020-08-26)
PROC: B54BZZA Ultrasonography of Right Lower Extremity Veins, Guidance (ICD-10-PCS; 2020-08-26)
PROC: 06HY33Z Insertion of Infusion Device into Lower Vein, Percutaneous Approach (ICD-10-PCS; 2020-08-26)
DX: A41.89 Other specified sepsis (principal); U07.1 COVID-19; E43 Unspecified severe protein-calorie malnutrition; E11.10 Type 2 diabetes mellitus with ketoacidosis without coma; E87.8 Other disorders of electrolyte and fluid balance, not elsewhere classified; E87.1 Hypo-osmolality and hyponatremia; I10 Essential (primary) hypertension; Z66 Do not resuscitate; J12.82 Pneumonia due to coronavirus disease 2019; N17.9 Acute kidney failure, unspecified; D64.9 Anemia, unspecified; J45.909 Unspecified asthma, uncomplicated; K92.0 Hematemesis; K92.1 Melena; R74.01 Elevation of levels of liver transaminase levels; D69.6 Thrombocytopenia, unspecified; J96.02 Acute respiratory failure with hypercapnia; E87.5 Hyperkalemia; E87.0 Hyperosmolality and hypernatremia; J96.01 Acute respiratory failure with hypoxia; K76.9 Liver disease, unspecified; B37.49 Other urogenital candidiasis; D72.810 Lymphocytopenia; I48.0 Paroxysmal atrial fibrillation; K57.30 Diverticulosis of large intestine without perforation or abscess without bleeding; R65.21 Severe sepsis with septic shock; Z90.49 Acquired absence of other specified parts of digestive tract; Z99.11 Dependence on respirator [ventilator] status; Z68.29 Body mass index [BMI] 29.0-29.9, adult; Z78.1 Physical restraint status
CPT/HCPCS: 31500; 36415; 36600; 71045; 74018; 74176; 76700; 80048; 80053; 80076; 80202; 81003; 82010; 82375; 82728; 82805; 82962; 83036; 83605; 83615; 83735; 83880; 84132; 84145; 84478; 84484; 85025; 85027; 85379; 86140; 86705; 86709; 86803; 87070; 87106; 87340; 93005; 94002; 94003; 94640; 99291; C9113; C9803; J0282; J0456; J0692; J0696; J1100; J1450; J1650; J1815; J2060; J2185; J2250; J2270; J2405; J2704; J2765; J3010; J3370; J3490; J7030; J7050; J7060; U0003; A4315